=== PATIENT | female | born 1995 | race Caucasian/White ===

== ENCOUNTER 2023-08-10 13:59 | Emergency (ER) | payer OTHER, SELFPAY ==
[2023-08-10 14:12] VITALS: BP 123/83; PULSE 93; RESP 16; TEMP 36.9; O2SAT 100
--- NOTE | 2023-08-10 14:15 | ED.URI ---
HPI - URI/Sore Throat General Chief Complaint: Upper Respiratory Infection Stated Complaint: Strep Symptoms Time Seen by Provider: 08/10/23 14:15 Source: patient, RN notes reviewed and old records reviewed Mode of arrival: ambulatory Limitations: no limitations History of Present Illness HPI Narrative: 27-year-old female to [facility] for complaint throat discomfort and bumps to posterior oropharynx and esophagus for 2 days. Patient states that she is from [place] and has been Traveling over the past 2 days. Patient states that she sent a message with a photo to her primary care provider yesterday and was contacted today and advised to be seen in urgent care to rule out thrush and strep throat. Patient denies fever, difficulty swallowing, headache, ear pain, recent illness, shortness of breath. Patient able to tolerate fluids by mouth. Respirations even nonlabored. Patient in no acute distress. Related Data Home Medications Medication Instructions Recorded Confirmed ergocalciferol (vitamin D2) 1,250 1,250 mcg PO DAILY 08/10/23 08/10/23 mcg (50,000 unit) capsule Allergies Allergy/AdvReac Type Severity Reaction Status Date / Time No Known Allergies Allergy Verified 08/10/23 15:00 Review of Systems Review of Systems: All systems reviewed & are unremarkable except as noted in HPI and below Constitutional: Constitutional: Reports no additional constitutional complaints Eyes: Eyes: Reports no additional eye complaints ENT: Reports as per HPI, Denies hoarseness, Reports mouth pain, Reports sore throat, Denies throat swelling and Denies tongue swelling Cardiovascular: Cardiovascular: Reports no additional cardiovascular complaints, Denies chest pain and Denies dyspnea Respiratory: Respiratory: Reports no additional respiratory complaints, Denies cough and Denies dyspnea Musculoskeletal: Musculoskeletal: Reports no additional musculoskeletal complaints Neurologic: Reports system reviewed and no additional complaints, except as documented Psychiatric: Psychiatric: Reports no additional psychiatric complaints PMFSH Comments At the time of my signature, I reviewed and agree with the nursing past medical, surgical, social, and family history. There is no relevant family history pertinent to the patient complaint. Exam Const: General: cooperative, healthy appearing, comfortable, no acute distress, alert and well nourished Nutritional Appearance: well nourished Orientation/consciousness: patient oriented x3 Limitations: no limitations HENMT: Head: normal to inspection Ears: external ears normal Face/Nose/Sinus: Normal external nose present, Normal nares present, normal facial exam, No erythema and No edema Face and sinus: normal facial exam, no erythema and no edema Mouth: Yes Normal oral and palatal mucosa present Throat: posterior oropharynx abnormal other ( raised white lesions. Consistent with thrush) Eyes: General: appearance normal, both eyes and all related structures Neck: Neck: normal visual inspection, full ROM and no meningeal signs Lymphatic: no lymphadenopathy noted and no lymphedema noted Chest: Chest palpation & inspection: normal inspection of the chest Resp: Effort & Inspection: normal respiratory effort and able to speak in complete sentences Auscultation: clear to auscultation bilaterally Cardio: Jugular venous distension: no JVD Rate: regular rate Rhythm: regular rhythm Back/Spine/Pelvis: Cervical Spine: cervical ROM normal Skin: General skin exam: normal color, no rashes or lesions noted and turgor normal Neuro: General: patient oriented x3, gait normal, moves all extremities and no meningeal signs Speech: normal speech Gait exam (Neuro): Normal gait present Extrem: General: normal to inspection and full ROM Psych: Appearance: grossly normal and well kempt Course Course Emergency Course: Some parts of this dictation were generated by voice recognition software and artem
== END 2023-08-10 15:10 | disposition home or self-care (01) ==
PROVIDERS: Emergency Provider Nurse Practitioner Family
DX: B37.0 Candidal stomatitis (principal)
CPT/HCPCS: 99213; G0463

== ENCOUNTER 2023-08-14 22:54 | Emergency (ER) | payer OTHER, SELFPAY ==
[2023-08-14 22:59] VITALS: BP 127/93; PULSE 86; RESP 18; TEMP 36.3; O2SAT 100
[2023-08-14 23:08] VITALS: BP 118/82; PULSE 93; RESP 16; O2SAT 100
[2023-08-14 23:35] VITALS: BP 111/90; PULSE 67; RESP 16; O2SAT 99
--- NOTE | 2023-08-14 23:44 | ED.DENTAL ---
HPI - Dental/Oral General Chief complaint: Dental/Oral <CALLIE Martinez Last Filed: 08/15/23 00:10> Stated complaint: thrush <CALLIE Martinez Last Filed: 08/15/23 00:10> Time Seen by Provider: 08/14/23 23:01 <CALLIE Martinez Last Filed: 08/15/23 00:10> Source: patient <CALLIE Martinez Last Filed: 08/15/23 00:10> Mode of arrival: ambulatory <CALLIE Martinez Filed: 08/15/23 00:10> Limitations: no limitations <CALLIE Martinez Last Filed: 08/15/23 00:10> History of Present Illness HPI Narrative: Patient is a 27 y/o female who presents to the ED with c/o thrush. Patient reports over the last several days, she has had a white coating to her tongue, dry tongue/ throat, halitosis, tongue discomfort. She was seen in urgent care recently and diagnosed with thrush. Started of nystatin. States symptoms seemed to improve slightly, however today she noticed worsening of symptoms and tonsillar stones. She has had tonsil stones in the past. She has been able to remove some of the stones. She denies sore throat, vomiting, difficulty breathing or swallowing, fevers. Has had strep throat before and does not feel her symptoms are consistent with this. Denies dental pain. She does note she is due to have her wisdom teeth taken out seen. <CALLIE Martinez Last Filed: 08/15/23 00:10> Related Data Home medications: Home Medications Medication Instructions Recorded Confirmed ergocalciferol (vitamin D2) 1,250 1,250 mcg PO DAILY 08/10/23 08/10/23 mcg (50,000 unit) capsule <CALLIE Martinez Last Filed: 08/15/23 00:10> Allergies/adverse reactions: Allergies Allergy/AdvReac Type Severity Reaction Status Date / Time No Known Allergies Allergy Verified 08/10/23 15:00 <Xin Ralph PA-C - Last Filed: 08/15/23 00:10> Review of Systems Review of Systems: CONSTITUTIONAL: Denies fever, chills, or sweats. ENT: See HPI. CARDIOVASCULAR: Denies chest pain RESPIRATORY: Denies cough, dysphagia, or dyspnea. GASTROINTESTINAL: Denies nausea, vomiting <Xin Ralph PA-C - Last Filed: 08/15/23 00:10> All systems reviewed & are unremarkable except as noted in HPI and below <Xin Ralph PA-C - Last Filed: 08/15/23 00:10> Exam Narrative: GENERAL: Well appearing, well-nourished, non-toxic, in no acute distress. HEAD: Normocephalic, atraumatic. ENT: Mild white plaques to periphery of tongue. Tongue appears very dry. No posterior pharynx erythema. L tonsil is slightly enlarged compared to R with visible tonsil stone. No exudates. Uvula is midline and nonedematous. No stridor or trismus. RESPIRATORY: Airway patent, respirations nonlabored. CARDIOVASCULAR: Regular rate and rhythm MUSCULOSKELETAL: Moves all extremities. No gross deformities. SKIN: Warm, dry, normal color. NEURO: A&O X3. Speech clear. PSYCHIATRIC: Appropriate mood and affect. Normal interaction. <Xin Ralph PA-C - Last Filed: 08/15/23 00:10> Course VIDEO GAME ENGINEER/PA Physician Supervision I agree with midlevel documentation; I performed the medical decision making component of this evaluation. <Vangie Ly MD - Last Filed: 08/15/23 00:33> Vital Signs Vital signs: Vital Signs Temperature 97.3 F L 08/14/23 22:59 Pulse Rate 86 08/14/23 22:59 Respiratory Rate 18 08/14/23 22:59 Blood Pressure 127/93 H 08/14/23 22:59 Pulse Oximetry 100 08/14/23 22:59 Temperature 97.3 F L 08/14/23 22:59 Pulse Rate 67 08/14/23 23:35 Respiratory Rate 16 08/14/23 23:35 Blood Pressure 111/90 08/14/23 23:35 Pulse Oximetry 99 08/14/23 23:35 <Xin Ralph PA-C - Last Filed: 08/15/23 00:10> Vital Signs Temperature 97.3 F L 08/14/23 22:59 Pulse Rate 86 08/14/23 22:59 Respiratory Rate 18 08/14/23 22:59 Blood Pressure 127/93 H
[2023-08-14] MEDS: FLUCONAZOLE 100 MG TABLET 200 MG PO (23:50)
== END 2023-08-14 23:59 | disposition home or self-care (01) ==
PROVIDERS: Emergency Provider Physician Assistant
DX: B37.9 Candidiasis, unspecified (principal); J35.8 Other chronic diseases of tonsils and adenoids
CPT/HCPCS: 99283; A9270